=== PATIENT | female | born 2000 | race Caucasian/White ===

== ENCOUNTER 2018-01-25 14:17 | Emergency (ER) | payer BC ==
[~2018-01-25] VITALS: Ht 162.6 cm; Wt 59.0 kg
[2018-01-25 14:49] VITALS: BP 157/93
== END 2018-01-25 15:40 | disposition home or self-care (01) ==
LOC: ED 15:31
DX: S06.0X0A Concussion without loss of consciousness, initial encounter (principal); X58.XXXA Exposure to other specified factors, initial encounter; Y93.89 Activity, other specified; Y92.89 Other specified places as the place of occurrence of the external cause; Y99.8 Other external cause status
CPT/HCPCS: 99282